=== PATIENT | male | born 1965 | race Caucasian/White ===

== ENCOUNTER → 2018-01-28 | Outpatient (CLI) | payer MEDICARE | END | disposition home or self-care (01) | LOC: RADMN 09:43 | PROVIDERS: ATTEND Internal Medicine | DX: I67.82 Cerebral ischemia (principal); H74.8X3 Other specified disorders of middle ear and mastoid, bilateral | CPT/HCPCS: 70450 ==

== ENCOUNTER 2021-12-13 10:29 | Day surgery (SDC) | payer MEDICARE ==
[~2021-12-13] VITALS: Ht 193 cm; Wt 117.7 kg
[~2021-12-13 10:29] MED LIST: SODIUM CHLORIDE 0.9% 1,000 ML IV ONE
[2021-12-13 10:57] LABS: COVID AG,FIA SOURCE NASAL SWAB
[2021-12-13] MEDS ORDERED: PROPOFOL 1% 20 ML VIAL IVP ONE (12:00)
[2021-12-13] MEDS ORDERED: LIDOCAINE/PF 2% 5 ML VIAL IM ONE (12:00)
== END 2021-12-13 14:10 | disposition home or self-care (01) ==
LOC: SURGERY 10:29
PROVIDERS: ATTEND Internal Medicine Gastroenterology
DX: K59.00 Constipation, unspecified (principal); K57.30 Diverticulosis of large intestine without perforation or abscess without bleeding; E66.3 Overweight; K64.8 Other hemorrhoids; K29.70 Gastritis, unspecified, without bleeding; I10 Essential (primary) hypertension; K21.00 Gastro-esophageal reflux disease with esophagitis, without bleeding; Z88.2 Allergy status to sulfonamides; F12.90 Cannabis use, unspecified, uncomplicated; Z98.890 Other specified postprocedural states; Z79.899 Other long term (current) drug therapy; Z90.49 Acquired absence of other specified parts of digestive tract; Z20.822 Contact with and (suspected) exposure to COVID-19; Z88.8 Allergy status to other drugs, medicaments and biological substances
CPT/HCPCS: 43239; 45378; 87426; C1769; J2704; J3490; C9803; 88305